=== PATIENT | female | born 1955 | race Caucasian/White ===

== ENCOUNTER 2019-05-04 06:33 | Day surgery (SDC) | payer BC ==
[2019-05-04] VITALS (10 sets, daily range): BP systolic 121–143; BP diastolic 66–98
[~2019-05-04] VITALS: Ht 167.6 cm; Wt 67.1 kg
[~2019-05-04 06:33] MED LIST: ERGO400C; HYDR-3964 PO; HYDR12.55 PO; IBAN150T21 PO; cefazolin/dext.iso 2gm/50ml 50 ML IV ONE; famotidine 20mg tablet PO ONE; ringers solution, lacted 1,000 ML IV SCH
[2019-05-04] MEDS ORDERED: ceFAZolin 1000mg inj ONE (06:50)
[2019-05-04] MEDS ORDERED: BUPIVAcaine/PF 2.5 mg/ml (0.25%) 30ml vial ONE (06:51)
[2019-05-04 07:56] LABS: BASOPHILS # (AUTO) 0.1 X10'3 (0-0.2); EOSINOPHILS # (AUTO) 0.2 X10'3 (0-0.9); EOSINOPHILS % (AUTO) 2.4 % (0-6); LYMPHOCYTES # (AUTO) 2.2 X10'3 (1.1-4.8); LYMPHOCYTES % (AUTO) 35.2 % (21-51); MEAN CORPUSCULAR HEMOGLOBIN 31.5 PG (27.0-31.0); MEAN CORPUSCULAR HGB CONC 34.7 g/dL (33.0-36.5); MEAN CORPUSCULAR VOLUME 90.7 FL (78-98); MONOCYTES # (AUTO) 0.4 X10'3 (0-0.9); NEUTROPHILS # (AUTO) 3.4 X10'3 (1.8-7.7); NEUTROPHILS % (AUTO) 54.4 % (42-75); PRE OP HEMATOCRIT 47.4 % (35.0-45.0); PRE OP HEMOGLOBIN 16.4 g/dL (12.0-16.0); PRE OP PLATELET COUNT 287 X10'3 (140-440); RED BLOOD COUNT 5.22 X10'6 (4.20-5.60)
[2019-05-04 08:12] LABS: ALBUMIN 4.1 G/DL (3.4-5.0); ALBUMIN/GLOBULIN RATIO 1.1 (1.1-1.5); ALKALINE PHOSPHATASE 82 IU/L (46-116); BLOOD UREA NITROGEN 9 MG/DL (7-18); BUN/CREATININE RATIO 12.5 (6.6-38.0); CALCIUM 9.5 MG/DL (8.5-10.1); CHLORIDE 102 MMOL/L (99-107); CREATININE 0.72 MG/DL (0.40-0.90); PRE OP ALT 18 U/L (30-65); PRE OP ANION GAP 6 (8-16); PRE OP AST 16 U/L (10-37); PRE OP BILIRUB, TOTAL 0.4 MG/DL (0.0-1.0); PRE OP GLUCOSE 96 MG/DL (70-104); PRE OP POTASSIUM 4.5 MMOL/L (3.4-5.1); PRE OP SODIUM 138 MMOL/L (135-145); TOTAL CARBON DIOXIDE 29.8 MMOL/L (24-32); TOTAL PROTEIN 7.8 G/DL (6.4-8.2); eGFR 82 ML/MIN
[2019-05-04] MEDS ORDERED: ringers solution, lacted 1,000 ML IV SCH (09:16)
[2019-05-04] MEDS ORDERED: hydrALAZINE 20mg/ml inj. IV PRN (09:20)
[2019-05-04] MEDS ORDERED: HYDROmorphone inj. 0.5 MG/0.5 ML DISP.SYRIN IV PRN ×2 (09:20)
[2019-05-04] MEDS ORDERED: fentaNYL/PF 50MCG/1 ML 2ML syringe IV PRN (09:20)
[2019-05-04] MEDS ORDERED: labetalol 20mg/4ml (5mg/ml) syringe IV PRN (09:20)
[2019-05-04] MEDS ORDERED: ondansetron/PF 4mg/2ml inj IV PRN (09:20)
[2019-05-04] MEDS ORDERED: sevoflurane 250ml liquid IH ONE (10:39)
[2019-05-04] MEDS ORDERED: glycopyrrolate 0.2mg/ml inj ONE (10:39)
[2019-05-04] MEDS ORDERED: neostigmine methylsulfate 1 MG/ML 10ml vial ONE (10:39)
[2019-05-04] MEDS ORDERED: dexamethasone sod phosphate 10mg/ml inj ONE (10:39)
[2019-05-04] MEDS ORDERED: midazolam 2 mg/2 ml injection ONE (10:40)
[2019-05-04] MEDS ORDERED: fentaNYL/PF 50MCG/1 ML 2ML syringe ONE (10:40)
[2019-05-04] MEDS ORDERED: ondansetron/PF 4mg/2ml inj ONE (10:55)
[2019-05-04] MEDS ORDERED: propofol inj 20 ML IV ONE (10:57)
[2019-05-04] MEDS ORDERED: LIDOcaine 2% (20mg/ml) 5ml vial ONE (10:57)
[2019-05-04] MEDS ORDERED: rocuronium 10mg/ml inj IV ONE (11:09)
--- NOTE | 2019-05-04 11:30 | NUR ---
Received from OR via BED , accompanied by Anesthesiologist DR EDUARDO and report given by Anesthesiolgist. PATIENT WAKING UP, DENIES PAIN, V/S WNL, NEUROVASCULAR CHECKS INTACT, 20G PIV RUE, SCD ON, BANDAIDS TO LAP SIGHTS OF ABDOMEN CDI.
[2019-05-04] MEDS: fentaNYL/PF 50MCG/1 ML 2ML syringe IV PRN ×2 (11:52→12:00)
--- NOTE | 2019-05-04 13:20 | NUR ---
PATIENT A&OX4, DENIES PAIN, V/S WNL, NEUROVASCULAR CHECKS INTACT, 20G PIV RUE D/C, SCD OFF, BANDAIDS TO LAP SIGHTS OF ABDOMEN CDI. PATIENT HAS VOIDED >250CC, I HAVE REVIEWED D/C INSTRUCTIONS WITH PATIENT AND FAMILY AND THEY HAVE VERBALIZED UNDERSTANDING. PATIENT D/C HOME WITH FAMILY WHO GAVE TRANSPORT ALONG WITH ALL BELONGINGS
== END 2019-05-04 13:20 | disposition home or self-care (01) ==
LOC: PAS 06:33
PROVIDERS: ATTEND Surgery
DX: K40.91 Unilateral inguinal hernia, without obstruction or gangrene, recurrent (principal); I10 Essential (primary) hypertension; J43.9 Emphysema, unspecified; F17.210 Nicotine dependence, cigarettes, uncomplicated; Z79.891 Long term (current) use of opiate analgesic; Z90.710 Acquired absence of both cervix and uterus; Z98.890 Other specified postprocedural states; Z80.0 Family history of malignant neoplasm of digestive organs; Z79.899 Other long term (current) drug therapy
CPT/HCPCS: 36415; 49651; 80053; 85025; 93005; C1781; J0690; J2001; J2250; J2405; J2704; J3010; J3490; A4215; A4314; A4618; A6258; J1100; J2710; J7120